=== PATIENT | male | born 1985 | race Caucasian/White ===

== ENCOUNTER 2025-05-15 00:20 | Emergency (ER) | payer SELFPAY ==
[~2025-05-15] VITALS: Ht 190.5 cm; Wt 108.9 kg
[2025-05-15] MEDS ORDERED: ALBU90OI INH (00:44)
[2025-05-15] MEDS ORDERED: Lisinopril2.5 MG PO (00:44)
[2025-05-15] MEDS ORDERED: MONT10T PO (00:45)
== END 2025-05-15 01:24 | disposition home or self-care (01) ==
LOC: ER 00:20
DX: S50.312A Abrasion of left elbow, initial encounter (principal); S50.811A Abrasion of right forearm, initial encounter; F10.90 Alcohol use, unspecified, uncomplicated; I10 Essential (primary) hypertension; J45.909 Unspecified asthma, uncomplicated; Z79.899 Other long term (current) drug therapy; Z59.89 Other problems related to housing and economic circumstances; W18.30XA Fall on same level, unspecified, initial encounter
CPT/HCPCS: 99282